=== PATIENT | female | born 1980 | race Caucasian/White ===

== ENCOUNTER 2017-05-04 13:46 | Emergency (ER) | payer OTHER ==
[~2017-05-04] VITALS: Ht 160 cm; Wt 70.3 kg
[2017-05-04 15:46] VITALS: BP 115/75
== END 2017-05-04 15:46 | disposition home or self-care (01) ==
LOC: ED 13:46
DX: S61.307A Unspecified open wound of left little finger with damage to nail, initial encounter (principal); W17.89XA Other fall from one level to another, initial encounter; Y93.89 Activity, other specified; Y99.8 Other external cause status; Y92.89 Other specified places as the place of occurrence of the external cause
CPT/HCPCS: A4570; Q0092